=== PATIENT | male | born 1965 | race Caucasian/White ===

== ENCOUNTER 2018-06-07 13:47 | Inpatient (IN) | payer MEDICARE, OTHER ==
[~2018-06-07] VITALS: Ht 185.4 cm; Wt 129.0 kg
[2018-06-23] VITALS (9 sets, daily range): BP systolic 116–129; BP diastolic 74–87; PULSE 65–78; TEMP 97.4–98.6
[2018-06-23] MEDS ORDERED: AMBIEN 5MG TABLE5 MG PO (10:38)
[2018-06-23] MEDS ORDERED: ASPIRIN E.C. 8181 MG PO (10:38)
[2018-06-23] MEDS ORDERED: BUSPAR DIVIDOSE15 MG PO (10:39)
[2018-06-23] MEDS ORDERED: NEURONTIN300 MG/CAP PO (10:40)
[2018-06-23] MEDS ORDERED: LIPITOR 80MG80 MG PO (10:40)
[2018-06-23] MEDS ORDERED: DESYREL 100MG100 MG PO (10:41)
[2018-06-23] MEDS ORDERED: PRILOSEC 20MG20 MG PO (10:41)
[2018-06-23] MEDS ORDERED: VITAMIN D31000 I1 PO (10:42)
[2018-06-23] MEDS ORDERED: VOLTAREN 75 DR75 MG PO (10:43)
[2018-06-23] MEDS ORDERED: COREG 25MG25 MG/TAB PO (10:44)
[2018-06-23] MEDS ORDERED: MINIPRESS 5M5 MG/CAP PO (10:53)
[2018-06-23] MEDS ORDERED: ROBAXIN 75750 MG/TAB PO (10:53)
[2018-06-23] MEDS ORDERED: ZOLOFT 100MG100 MG PO (10:54)
[2018-06-24 04:27] VITALS: BP 125/75; PULSE 74; TEMP 98.5
[2018-06-24 06:34] LABS: BASO % 0.1 % (0.0-2.0); EOS % 0.1 % (0-4.0); GRAN # 8.8 (1.4-6.5); GRAN % 88.4 % (42.2-75.2); HEMATOCRIT 43.2 % (42.0-52.0); LYMPH # 0.6 (1.2-3.4); LYMPH % 5.8 % (20.0-51.0); MEAN CELL VOLUME 92 fl (80.0-100.0); MEAN CORPUSCULAR HEMOGLOBIN 32 pg (27.0-31.0); MEAN CORPUSCULAR HGB CONC 35 g/dl (33.0-37.0); MEAN PLATELET VOLUME 11.8 fl (7.4-10.4); MONO # 0.5 (0.1-0.6); MONO % 5.2 % (1.7-9.3); PLATELET COUNT 122 K/mm3 (130-400); RED BLOOD COUNT 4.72 M/mm3 (4.20-5.60); REDCELL DISTRIBUTION WIDTH-CV 12.3 % (11.5-14.5)
[2018-06-24 06:41] LABS: CALCIUM 8.4 mg/dL (8.4-10.2); CREATININE, serum 0.92 mg/dL (0.66-1.25); POTASSIUM 4.3 mmol/L (3.4-5.0)
[2018-06-24 07:52] VITALS: BP 115/70; PULSE 57; TEMP 97.4
[2018-06-24 11:07] VITALS: BP 121/68; PULSE 62; TEMP 98.1
[2018-06-24 16:26] VITALS: BP 126/78; PULSE 58; TEMP 98
[2018-06-24 19:17] VITALS: BP 142/90; PULSE 58; TEMP 98
[2018-06-24 23:16] VITALS: BP 136/83; PULSE 62; TEMP 98
[2018-06-25 04:26] VITALS: BP 123/80; PULSE 51; TEMP 98.2
[2018-06-25 08:51] VITALS: BP 141/89; PULSE 57; TEMP 98
[2018-06-25] MEDS ORDERED: MOTRIN 600600 MG/TAB PO (08:53)
[2018-06-25] MEDS ORDERED: ULTRAM 50MG TAB50 MG PO (08:53)
[2018-06-25] MEDS ORDERED: ROXICODONE 55 MG/TAB PO (08:53)
== END 2018-06-25 11:50 | disposition home or self-care (01) | DRG 331 ==
LOC: INPTSU 06-23 09:06 → SURG 06-23 09:06
PROVIDERS: Surgery; Urology
PROC: 3E0K8KZ Introduction of Other Diagnostic Substance into Genitourinary Tract, Via Natural or Artificial Opening Endoscopic (ICD-10-PCS; 2018-06-23)
PROC: 0DTN4ZZ Resection of Sigmoid Colon, Percutaneous Endoscopic Approach (ICD-10-PCS; principal; 2018-06-23 11:15)
PROC: 8E0W4CZ Robotic Assisted Procedure of Trunk Region, Percutaneous Endoscopic Approach (ICD-10-PCS; 2018-06-23 11:15)
DX: K57.32 Diverticulitis of large intestine without perforation or abscess without bleeding (principal); I25.10 Atherosclerotic heart disease of native coronary artery without angina pectoris; Z95.5 Presence of coronary angioplasty implant and graft; I10 Essential (primary) hypertension
CPT/HCPCS: A4314; A9284; C1769; J0690; J1100; J1650; J1885; J2250; J2405; J2704; J2710; J3010; J7120